=== PATIENT | male | born 1955 | race American Indian/Alaskan Native ===

== ENCOUNTER 2018-02-02 09:59 | Day surgery (SDC) | payer MEDICAID, OTHER ==
--- NOTE | 2018-02-02 10:43 | PCM.PREANE ---
Preanesthetic Assessment - Procedure Proposed Procedure: EGD and Colonoscopy - Anesthesia/Transfusion/Family Hx Anesthesia History: Prior Anesthesia Without Reaction Family History of Anesthesia Reaction: No Transfusion History: No Prior Transfusion(s) Intubation History: Unknown Additional History: prior colonoscopy in 2016 w/o problem - Review of Systems General: No Symptoms Pulmonary: Other (former smoker) Cardiovascular: No Symptoms Gastrointestinal: No Symptoms Neurological: No Symptoms Other: Reports: Diabetes (type II) - Physical Assessment NPO Status Date: 02/01/18 NPO Status Time: 22:00 O2 Sat by Pulse Oximetry: 95 Respiratory Rate: 16 Vital Signs: Last Vital Signs Temp 97.7 F 02/02/18 10:23 Pulse 63 02/02/18 10:23 Resp 16 02/02/18 10:23 BP 146/82 H 02/02/18 10:23 Pulse Ox 95 02/02/18 10:23 Height: 5 ft 11 in Weight: 227 lb ASA Class: 2 Mental Status: Alert & Oriented x3 Airway Class: Mallampati = 1 Dentition: Reports: Broken Tooth/Teeth (upper and lower) Thyro-Mental Finger Breadths: 3 Mouth Opening Finger Breadths: 3 ROM/Head Extension: Full Lungs: Clear to Auscultation, Normal Respiratory Effort Cardiovascular: Regular Rate, Regular Rhythm, No Murmurs Other: vitiligo - Allergies Allergies/Adverse Reactions: Allergies Allergy/AdvReac Type Severity Reaction Status Date / Time No Known Allergies Allergy Verified 01/30/18 10:06 - Blood Blood Available: No Product(s) Available: None - Anesthesia Plan Pre-Op Medication Ordered: None - Acknowledgements Anesthesia Type Planned: MAC Pt an Appropriate Candidate for the Planned Anesthesia: Yes Alternatives and Risks of Anesthesia Discussed w Pt/Guardian: Yes Pt/Guardian Understands and Agrees with Anesthesia Plan: Yes PreAnesthesia Questionnaire HEENT History: Reports: Glaucoma Other HEENT History: wears glasses Cardiovascular History: Reports: High Cholesterol, Hypertension Respiratory History: Reports: None Gastrointestinal History: Reports: Other (See Below) Other Gastrointestinal History: hx of H pylori Genitourinary History: Reports: None Musculoskeletal History: Reports: Fracture Other Musculoskeletal History: hx of fx leg Neurological History: Reports: None Psychiatric History: Reports: None Endocrine/Metabolic History: Reports: Diabetes, Type II, Obesity/BMI 30+ Hematologic History: Reports: None Immunologic History: Reports: None Oncologic (Cancer) History: Reports: None Dermatologic History: Reports: Other (See Below) Other Dermatologic History: hx of Vitiligo - Past Surgical History Head Surgeries/Procedures: Reports: None GI Surgical History: Reports: Colonoscopy, EGD Musculoskeletal Surgical History: Reports: Other (See Below) Other Musculoskeletal Surgeries/Procedures:: closed reduction fx wrist - SUBSTANCE USE Smoking Status *Q: Former Smoker Tobacco Use Within Last Twelve Months: No Recreational Drug Use History: No - HOME MEDS Home Medications: Home Meds Furosemide 20 mg PO BID 11/03/15 [History] Losartan Potassium 50 mg PO DAILY 11/03/15 [History] amLODIPine Besylate [Amlodipine Besylate] 10 mg PO QPM 11/03/15 [History] metFORMIN HCl [Metformin HCl ER] 1,000 mg PO BID 11/03/15 [History] Aspirin [Adult Low Dose Aspirin EC] 81 mg PO DAILY 01/30/18 [History] Cetirizine [ZyrTEC] 10 mg PO DAILY 01/30/18 [History] Dextrose [Glucose] 4 gm PO ASDIRECTED PRN 01/30/18 [History] Latanoprost/Pf [Latanoprost 0.005% Eye Drop] 1 drop EYEBOTH BEDTIME 01/30/18 [ History] atorvaSTATin Calcium [Atorvastatin Calcium] 20 mg PO DAILY 01/30/18 [History]
[2018-02-02] MEDS ORDERED: fentaNYL 100 MCG/2 ML SDV ONE (11:38)
[2018-02-02] MEDS ORDERED: Midazolam 1 MG/ML 2 ML SDV ONE (11:38)
[2018-02-02] MEDS ORDERED: Lidocaine 2% 5 ML SDV ONE (11:38)
[2018-02-02] MEDS ORDERED: Propofol 200 MG/20 ML SDV ONE (11:38)
--- NOTE | 2018-02-02 12:19 | PCM.POSTAN ---
POST ANESTHESIA ASSESSMENT - MENTAL STATUS Mental Status: Alert, Oriented - RESPIRATORY Respiratory Status: Respiratory Rate WNL, Airway Patent, O2 Saturation Stable - CARDIOVASCULAR CV Status: Pulse Rate WNL, Blood Pressure Stable - GASTROINTESTINAL GI Status: No Symptoms - POST OP HYDRATION Hydration Status: Adequate & Stable
--- NOTE | 2018-02-02 12:30 | PCM48HPAN ---
Post Anesthesia Note - EVALUATION WITHIN 48HRS OF ANESTHETIC Vital Signs in Normal Range: Yes Patient Participated in Evaluation: Yes Respiratory Function Stable: Yes Airway Patent: Yes Cardiovascular Function Stable: Yes Hydration Status Stable: Yes Pain Control Satisfactory: Yes Nausea and Vomiting Control Satisfactory: Yes Mental Status Recovered: Yes Resp Rate: 18
[2018-02-02 12:33] VITALS: BP 123/70
--- NOTE | 2018-02-02 12:45 | PCM.OPNOTE ---
- General Post-Op/Procedure Note Date of Surgery/Procedure: 02/02/18 Operative Procedure(s): egd w bx. colonoscopy Findings: see [id number] Pre Op Diagnosis: Guiaiac positive stool and gerd Post-Op Diagnosis: hemorrhoid and gerd Anesthesia Technique: Moderate Sedation Primary Surgeon: Billy Bernal Pathology: sent Complications: None Condition: Good
--- NOTE | 2018-02-02 14:45 | OR ---
SURGEON: Billy Bernal MD DATE OF PROCEDURE: 02/02/2018 PREOPERATIVE DIAGNOSIS: Guaiac-positive stool. POSTOPERATIVE DIAGNOSES: Esophagogastroduodenoscopy diagnosis: Acid reflux. Colonoscopy diagnosis: Hemorrhoids. PROCEDURES PERFORMED: Esophagogastroduodenoscopy with biopsy and colonoscopy. PROCEDURE IN DETAIL: EGD: The patient was taken to the endoscopy room, and with the [employer], Diprivan was administered. A well-lubricated EGD scope was gently inserted through the oropharynx, down the esophagus, passing through the gastroesophageal junction, into the stomach. The mucosa was examined upon the passage. Any etiology will be noted. Once in the stomach, we continued to advance to the distal antrum, passed through the pylorus into the second portion of the duodenum. Again, the mucosa was examined for any abnormality and etiology. The scope was then retrieved back to the stomach and then retroflexed to look at the fundus of the stomach. If a biopsy was indicated, we will biopsy the antrum, body, and gastroesophageal junction. The air will be sucked out while the scope is retrieved to reduce the patient's discomfort. The patient tolerated the procedure well. There were no intraoperative complications. Dr. Bernal was present through the whole procedure. Prior to surgery, a time-out had been called, the patient identified, procedure identified and antibiotic administered. Colonoscopy procedure: The patient was taken to the endoscopy room. A time out was called, patient identified, and procedure identified. Diprivan was then administrated. Patient went from awake to sleep, hearing doctor talking or door closing is normal. Perineum inspection and digital examination were then performed. A well- lubricated colonoscope was gently inserted through the rectum, advanced past the rectosigmoid junction, the descending colon, splenic flexure, transverse colon, hepatic flexure, ascending colon, arrived to the cecum. Cecum was identified as dictated in the finding. Then the scope was carefully withdrawn while attention was paid to the mucosal surface for any abnormality. Air will be sucked out during the scope withdrawal. At the rectum, retroflexed to examine any rectal diseases, fistula or hemorrhoids. Patient tolerated procedure well. There were no intraoperative complications, and Dr. Bernal was present throughout the whole procedure. FINDINGS: EGD findings: 1. The patient is easily sedated with [employer] and Diprivan. The patient is soundly snoring. 2. Oropharynx and proximal esophagus are free of disease and inflammation. Distal esophagus at GE junction at 40 shows very mild salmon-color change consistent with mild acid reflux, and stomach rugae is normal in appearance and antrum is mildly inflamed. Duodenum was grossly normal. Retroflexed look at the fundus of stomach, there is a mild hiatal hernia. Biopsy done at antrum, body, GE junction at 40, and sucked out the air while scope pulling out. The patient has large amount of bile in the stomach. No food, blood, or ulcer. Colonoscopy findings: 1. The patient is easily sedated with [employer] and Diprivan. The patient is soundly snoring. 2. Bowel prep is average with moderate amount of liquid stool. No semi-formed stool. 3. The patient's colon is rather straight forward. Cecum indicated by ileocecal fold, one-to-one indentation, light emittance, appendiceal orifice. Mucosa examined upon scope coming out and sometimes requiring irrigation. The patient does not have diverticulosis, polyp, mass, growth, inflammation, stricture, ulceration, AV malformation, bleeding ulcer, none of those. The patient has moderate internal hemorrhoids. No external hemorrhoids. The patient would benefit from repeat colonoscopy in 10 years from today or if clinically indicated otherwise. As always, thank you for the kind referral. PETEY / PRAKASH /[id number]
== END 2018-02-02 12:34 | disposition home or self-care (01) ==
LOC: MW.SDS 09:59
PROVIDERS: ATTEND Surgery
DX: R19.5 Other fecal abnormalities (principal); K21.9 Gastro-esophageal reflux disease without esophagitis; K64.8 Other hemorrhoids; K29.50 Unspecified chronic gastritis without bleeding; K20.9 Esophagitis, unspecified; E78.00 Pure hypercholesterolemia, unspecified; E11.9 Type 2 diabetes mellitus without complications; I10 Essential (primary) hypertension; E66.9 Obesity, unspecified; Z68.31 Body mass index [BMI] 31.0-31.9, adult; Z79.82 Long term (current) use of aspirin; Z79.84 Long term (current) use of oral hypoglycemic drugs; Z79.899 Other long term (current) drug therapy; Z87.891 Personal history of nicotine dependence
CPT/HCPCS: 43239; 45378; J2250; J2704; J3010; 88305; 88312

== ENCOUNTER 2018-09-14 10:11 | Day surgery (SDC) | payer MEDICAID ==
[~2018-09-14 10:11] MED LIST: Lactated Ringers 1,000 ML IV SCH
--- NOTE | 2018-09-14 11:35 | PCM.PREANE ---
Preanesthetic Assessment - Anesthesia/Transfusion/Family Hx Anesthesia History: Prior Anesthesia Without Reaction Family History of Anesthesia Reaction: No Transfusion History: No Prior Transfusion(s) Intubation History: Unknown - Review of Systems General: No Symptoms Pulmonary: No Symptoms Cardiovascular: No Symptoms Gastrointestinal: Abdominal Pain, Other (gastric metaplasia last year on EGD) Neurological: No Symptoms Other: Reports: None - Physical Assessment Height: 1.8 m Weight: 97.976 kg ASA Class: 3 Mental Status: Alert & Oriented x3 Airway Class: Mallampati = 2 Dentition: Reports: Broken Tooth/Teeth (remainig upper teeh), Missing Tooth/ Teeth (most of the upper teeth) Thyro-Mental Finger Breadths: 3 Mouth Opening Finger Breadths: 3 ROM/Head Extension: Full Lungs: Clear to Auscultation, Normal Respiratory Effort Cardiovascular: Regular Rate, Regular Rhythm - Allergies Allergies/Adverse Reactions: Allergies Allergy/AdvReac Type Severity Reaction Status Date / Time No Known Allergies Allergy Verified 09/13/18 10:40 - Blood Blood Available: No - Anesthesia Plan Pre-Op Medication Ordered: None - Acknowledgements Anesthesia Type Planned: MAC Pt an Appropriate Candidate for the Planned Anesthesia: Yes Alternatives and Risks of Anesthesia Discussed w Pt/Guardian: Yes Pt/Guardian Understands and Agrees with Anesthesia Plan: Yes PreAnesthesia Questionnaire HEENT History: Reports: Glaucoma, Other (See Below) Other HEENT History: wears glasses Cardiovascular History: Reports: High Cholesterol, Hypertension Respiratory History: Reports: None Gastrointestinal History: Reports: GERD, Helicobacter Pylori, Other (See Below) Other Gastrointestinal History: hx of Gastric Metaplasia Genitourinary History: Reports: None Musculoskeletal History: Reports: Fracture Other Musculoskeletal History: hx of fx leg Neurological History: Reports: None Psychiatric History: Reports: None Endocrine/Metabolic History: Reports: Diabetes, Type II, Obesity/BMI 30+ Hematologic History: Reports: None Immunologic History: Reports: None Oncologic (Cancer) History: Reports: None Dermatologic History: Reports: Other (See Below) Other Dermatologic History: states has some kind of skin condition but doesn't know the name - Past Surgical History GI Surgical History: Reports: Colonoscopy, EGD - SUBSTANCE USE Smoking Status *Q: Former Smoker Tobacco Use Within Last Twelve Months: No Recreational Drug Use History: No - HOME MEDS Home Medications: Home Meds Furosemide 20 mg PO BID 05/17/16 [History] Losartan Potassium 50 mg PO BID 11/03/15 [History] amLODIPine Besylate [Amlodipine Besylate] 10 mg PO QPM 11/03/15 [History] metFORMIN HCl [Metformin ER Osmotic] 1,000 mg PO BID 11/03/15 [History] Aspirin [Adult Low Dose Aspirin EC] 81 mg PO DAILY 01/30/18 [History] Cetirizine [ZyrTEC] 10 mg PO DAILY 01/30/18 [History] Dextrose [Glucose] 4 gm PO ASDIRECTED PRN 01/30/18 [History] Latanoprost/Pf [Latanoprost 0.005% Eye Drop] 1 drop EYEBOTH BEDTIME 01/30/18 [ History] atorvaSTATin Calcium [Atorvastatin Calcium] 20 mg PO DAILY 01/30/18 [History] Ranitidine HCl 150 mg PO DAILY 09/11/18 [History] - CURRENT (IN HOUSE) MEDS Current Meds: Current Medications Lactated Ringer's (Ringers, Lactated) 1,000 mls @ 125 mls/hr IV ASDIRECTED DON
[2018-09-14] MEDS ORDERED: Midazolam 1 MG/ML 2 ML SDV ONE (12:31)
[2018-09-14] MEDS ORDERED: fentaNYL 100 MCG/2 ML SDV ONE (12:32)
[2018-09-14] MEDS ORDERED: Lidocaine 2% 5 ML SDV ONE (12:34)
[2018-09-14] MEDS ORDERED: Propofol 200 MG/20 ML SDV ONE ×2 (12:35)
--- NOTE | 2018-09-14 13:04 | PCM.OPNOTE ---
- General Post-Op/Procedure Note Date of Surgery/Procedure: 09/14/18 Findings: see dict [id number] Pre Op Diagnosis: intesetinal change of gastric mucosa Post-Op Diagnosis: Same Anesthesia Technique: Moderate Sedation Primary Surgeon: Billy Bernal Complications: None Condition: Good
--- NOTE | 2018-09-14 13:46 | PCM48HPAN ---
Post Anesthesia Note - EVALUATION WITHIN 48HRS OF ANESTHETIC Vital Signs in Normal Range: Yes Patient Participated in Evaluation: Yes Respiratory Function Stable: Yes Airway Patent: Yes Cardiovascular Function Stable: Yes Hydration Status Stable: Yes Pain Control Satisfactory: Yes Nausea and Vomiting Control Satisfactory: Yes Mental Status Recovered: Yes Resp Rate: 11 - COMMENTS/OBSERVATIONS Free Text/Narrative:: no anesthesia problems
[2018-09-14 14:07] VITALS: BP 105/62
--- NOTE | 2018-09-14 18:47 | OR ---
SURGEON: Billy Bernal MD DATE OF PROCEDURE: 09/14/2018 PREOPERATIVE DIAGNOSIS: Intestinal change of gastric mucosa. POSTOPERATIVE DIAGNOSIS: Intestinal change of gastric mucosa. PROCEDURE PERFORMED: Esophagogastroduodenoscopy with biopsy. COMPLICATIONS: None. FINDINGS: The patient was easily sedated with [employer] and Diprivan. The patient is soundly snoring and oropharynx and proximal esophagus are normal in appearance. No stricture, inflammation, or varicosity. GE junction at 40 shows mild salmon- colored change, consistent with mild acid reflux. There was some bile in the stomach and no food particle or blood ulcer. Antrum is mildly inflamed and duodenum is grossly normal in appearance. Retroflexed look at the fundus of stomach, there was no hiatal hernia. Random biopsy done at greater curvature and smaller curvature, and sent for pathology. Sucked out the gas while scope pulling out. PETEY / PRAKASH /[id number]
== END 2018-09-14 13:55 | disposition home or self-care (01) ==
LOC: MW.SDS 10:11
PROVIDERS: ATTEND Surgery
DX: K29.50 Unspecified chronic gastritis without bleeding (principal); I10 Essential (primary) hypertension; E11.9 Type 2 diabetes mellitus without complications; E78.00 Pure hypercholesterolemia, unspecified; E66.9 Obesity, unspecified; Z68.30 Body mass index [BMI] 30.0-30.9, adult; Z87.891 Personal history of nicotine dependence; Z79.82 Long term (current) use of aspirin; Z79.84 Long term (current) use of oral hypoglycemic drugs; Z79.899 Other long term (current) drug therapy
CPT/HCPCS: 43239; 82962; J2001; J2250; J2704; J3010; J7120

== ENCOUNTER → 2020-03-25 | Day surgery (SDC) | payer MEDICAID ==
[~2020-03-25] MED LIST changes: +Lidocaine 2% 5 ML SDV ONE; +Midazolam 1 MG/ML 2 ML SDV ONE; +Propofol 200 MG/20 ML SDV ONE; +Sodium Chloride 0.9% 10 ML SDV IV PRN; +Sodium Chloride 0.9% 10 ML Syringe FLUSH PRN; +Sodium Chloride 0.9% 2.5 ML Syringe FLUSH PRN; +fentaNYL 100 MCG/2 ML SDV ONE
--- NOTE | 2020-03-25 08:02 | PCM.SN.2 ---
- Free Text/Narrative Note: +ve covid, elective procedure cancelled. reschedule 6 wks later. instruct pt call office and [facility]
== END | disposition home or self-care (01) ==
LOC: MW.SDS 06:38
PROVIDERS: ATTEND Surgery
DX: K31.89 Other diseases of stomach and duodenum (principal); U07.1 COVID-19; Z53.09 Procedure and treatment not carried out because of other contraindication
CPT/HCPCS: J2001; J2250; J2704; J3010; U0002

== ENCOUNTER 2022-02-25 09:54 | Day surgery (SDC) | payer MEDICARE, MEDICAID ==
[~2022-02-25 09:54] MED LIST changes: -Lidocaine 2% 5 ML SDV ONE; -Midazolam 1 MG/ML 2 ML SDV ONE; -Propofol 200 MG/20 ML SDV ONE; -Sodium Chloride 0.9% 10 ML SDV IV PRN; -Sodium Chloride 0.9% 10 ML Syringe FLUSH PRN; -Sodium Chloride 0.9% 2.5 ML Syringe FLUSH PRN; -fentaNYL 100 MCG/2 ML SDV ONE
[2022-02-25] MEDS ORDERED: Sodium Chloride 0.9% 500 ML IV SCH (12:45)
[2022-02-25] MEDS ORDERED: Propofol 200 MG/20 ML SDV ONE (12:54)
[2022-02-25] MEDS ORDERED: Midazolam 1 MG/ML 2 ML SDV ONE (12:54)
[2022-02-25] MEDS ORDERED: Lactated Ringers 1,000 ML IV SCH ×3 (13:45)
[2022-02-25 14:51] VITALS: BP 121/61; PULSE 62
== END 2022-02-25 14:09 | disposition home or self-care (01) ==
LOC: MW.SDS 09:54
PROVIDERS: ATTEND Surgery
DX: K29.50 Unspecified chronic gastritis without bleeding (principal); K29.00 Acute gastritis without bleeding; K31.A19 Gastric intestinal metaplasia without dysplasia, unspecified site; F17.200 Nicotine dependence, unspecified, uncomplicated; I12.9 Hypertensive chronic kidney disease with stage 1 through stage 4 chronic kidney disease, or unspecified chronic kidney disease; Z99.2 Dependence on renal dialysis; N18.9 Chronic kidney disease, unspecified; Z79.82 Long term (current) use of aspirin; Z79.899 Other long term (current) drug therapy; Z98.890 Other specified postprocedural states
CPT/HCPCS: 00731; 36415; 84132; J2250; J2704; J7040